=== PATIENT | female | born 1935 | race Caucasian/White ===

== ENCOUNTER 2020-03-03 17:53 | Outpatient (REF) | payer MEDICARE, OTHER, SELFPAY | END 2020-03-03 18:13 | LOC: NCHCN 17:53 | PROVIDERS: PCP Internal Medicine; Visit Provider Nurse Practitioner Family | DX: S40.812A Abrasion of left upper arm, initial encounter (principal) | CPT/HCPCS: 87070; 87205 ==

== ENCOUNTER 2022-01-13 16:48 | Outpatient (REF) | payer MEDICARE, OTHER, SELFPAY ==
[2022-01-13 15:13] LABS: HCT 27.9 % (36.0-46.0); HGB 8.6 g/dL (11.2-15.7); MCH 30.8 pg (27.0-33.0); MCHC 30.8 % (32.0-36.0); MCV 100 fL (80-95); MPV 10.3 fL (8.0-11.0); Platelet Count 555 10^3/uL (130-400); RBC 2.79 10^6/uL (3.93-5.22); RDW 15.5 % (11.7-14.6); RDW-SD 56.3 fL; WBC 12.46 10^3/uL (4.4-10.8)
[2022-01-13 15:27] LABS: Anion Gap 8.4 mmol/L (3-11); CO2 29.6 mmol/L (21.0-32.0); Calcium 8.9 mg/dL (8.5-10.1); Chloride 98 mmol/L (98-107); Estimated GFR 7.86 (mL/min/1.73m2); Glucose 94 mg/dL (74-106); Potassium 4.5 mmol/L (3.5-5.1); Sodium 136 mmol/L (136-145)
[2022-01-13 15:45] LABS: BUN 88 mg/dL (7-18)
[2022-01-13 15:47] LABS: CREATININE 5.2 mg/dL (0.55-1.02)
== END 2022-01-13 16:49 | disposition home or self-care (01) ==
LOC: NCHCN 16:48
PROVIDERS: PCP Internal Medicine; Visit Provider Registered Nurse
DX: N18.4 Chronic kidney disease, stage 4 (severe) (principal)
CPT/HCPCS: 80048; 85027